=== PATIENT | female | born 1995 | race Caucasian/White ===

== ENCOUNTER 2017-05-25 13:15 | Emergency (ER) | payer MEDICAID, OTHER ==
[2016-04-01 16:58] VITALS: BMI 26.9
[2017-05-25 18:56] VITALS: BP 127/86; PULSE 70; TEMP 98.1
== END 2017-05-25 14:55 | disposition home or self-care (01) ==
LOC: C.EROB 13:15
DX: O47.1 False labor at or after 37 completed weeks of gestation (principal); Z3A.38 38 weeks gestation of pregnancy

== ENCOUNTER 2017-05-28 18:36 | Inpatient (IN) | payer OTHER ==
[2016-04-01 16:58] VITALS: BMI 26.9
[2017-05-28] MEDS ORDERED: Lactated Ringer's 1,000 ML IV SCH (19:00)
[2017-05-28] MEDS ORDERED: Penicillin G Potassium 5 MU in Dextrose 5% In Water 50 ML IV ONE (19:01)
[2017-05-28] MEDS ORDERED: Penicillin G 5 Million Unit Vial IVPB ONE (19:15)
[2017-05-28 19:58] LABS: BASO % 0.2 % (0.0-2.0); EOS % 0.1 % (0.0-4.0); HEMATOCRIT 38.5 % (34.0-47.0); LYMPH # 0.9 K/uL (1.0-4.3); LYMPH % 5.3 % (20.0-40.0); MEAN CORPUSCULAR HEMOGLOBIN 25.7 pg (27.0-31.0); MEAN CORPUSCULAR HGB CONC 32.9 g/dL (33.0-37.0); MEAN PLATELET VOLUME 10.2 fL (7.2-11.7); MONO # 0.9 K/uL (0.0-0.8); MONO % 5.2 % (0.0-10.0); NRBC % 0.4 % (0.0-2.0); PLATELET COUNT 86 K/uL (130-400); RED CELL DISTRIBUTION WIDTH 14.4 % (11.5-14.5); WHITE BLOOD COUNT 17.7 K/uL (4.8-10.8)
[2017-05-28 20:07] LABS: INR 0.9
[2017-05-28 20:12] LABS: RBC URINE 1 /hpf (0-3); TRANSITIONAL EPITHIAL < 1 /hpf (0-3); URINE BACTERIA RARE (<OCC); URINE BILIRUBIN NEGATIVE (NEGATIVE); URINE BLOOD NEGATIVE (NEGATIVE); URINE COLOR Amber (YELLOW); URINE GLUCOSE (UA) NORMAL (Normal); URINE KETONE NEGATIVE (NEGATIVE); URINE LEUKOCYTE ESTERASE NEG Leu/uL (Negative); URINE PROTEIN 2+ mg/dL (NEGATIVE); URINE UROBILINOGEN NORMAL mg/dL (0.2-1.0); WBC URINE 1 /hpf (0-5)
[2017-05-28 20:21] LABS: ALB/GLOB RATIO 0.9 (1.0-2.1); ALKALINE PHOSPHATASE 357 U/L (38-126); ALT/SGPT 401 U/L (9-52); AST/SGOT 461 U/L (14-36); BILIRUBIN,TOTAL 1.7 mg/dL (0.2-1.3); BLOOD UREA NITROGEN 8 mg/dL (7-17); CALCIUM 8.5 mg/dl (8.6-10.4); CARBON DIOXIDE 19 mmol/L (22-30); CHLORIDE 101 mmol/L (98-107); GFR AFRICAN-AMERICAN > 60; GLUCOSE,RANDOM 72 mg/dL (65-105); POTASSIUM 3.8 mmol/L (3.6-5.2); SODIUM 132 mmol/L (132-148); TOTAL PROTEIN 7.9 g/dL (6.3-8.3); URIC ACID 5.1 mg/dL (2.2-7.5)
[2017-05-28] MEDS ORDERED: Nalbuphine 20 mg/ml Inj (1 ml) IVP ONE (20:28)
[2017-05-28 20:40] LABS: BASO % 0.1 % (0.0-2.0); EOS % 0.1 % (0.0-4.0); HEMATOCRIT 37.6 % (34.0-47.0); LYMPH # 1.2 K/uL (1.0-4.3); LYMPH % 6.9 % (20.0-40.0); MEAN CELL VOLUME 77.9 fL (81.0-99.0); MEAN CORPUSCULAR HEMOGLOBIN 25.6 pg (27.0-31.0); MEAN CORPUSCULAR HGB CONC 32.9 g/dL (33.0-37.0); MEAN PLATELET VOLUME 10.7 fL (7.2-11.7); MONO # 0.9 K/uL (0.0-0.8); MONO % 5.1 % (0.0-10.0); NRBC % 0.1 % (0.0-2.0); RED CELL DISTRIBUTION WIDTH 14.2 % (11.5-14.5); WHITE BLOOD COUNT 17.5 K/uL (4.8-10.8)
--- NOTE | 2017-05-28 20:55 | OBHP ---
Datetime: 05/28/2017 19:05 IP Adm Impression: Term, intrauterine IP Admit Plan: Admit to unit; Initiate labor protocol Admit Comment, IP Provider: Patient is a 22 year old at 39w0d KEISHA 06/04/17 by LMP presents to L+D for contractions that started at 8:30am today, states that pain is located in the right side of the abdomen and is constant in nature. Also states having one episode of nausea and vomiting this mor taiwo. Endorses +FM, denies VB, LOF. Issues: Hx of Chlamydia - treated on 05/21/17 GBS positive OB Hx: 1. 2013 at term, no complications [employer] Hx: LMP: 08/28/16 [place]: 13 x regular x 4-5 days Denies fibroids, ovarian cysts Denies hx of abnormal pap smears Hx of chlamydia with this - treated on 05/21/17 Allergies: NKDA Medications: PNV Medical Hx: Denies Surgical Hx: Laparoscopic cholecystectomy in 2013 Social Hx: Denies alcohol, tobacco, drug use; lives with mother and daughter Family Hx: Mother - healthy; Father - DM PE: See above A/P: 22 year old at 39w0d presents with uterine contractions 1. Admit to unit 2. Stable, afebrile 3. CEFM and TOCO 4. Admission labs - CBC, CMP, T+S, UA 5. LR @ 125 cc/hr 6. GBS positive - Penicillin G 5mu x 1, Penicillin G 2.5mu q4H until delivery 7. Elevated BP - PIH labs ordered 8. Anesthesia consulted for epidural 9. Anticipate vaginal delivery 10. Plan d/w attending Verónica Kendrick DO PGY-1 Patient examiend.agree with resident exam, assessment and plan Pelvic Type - PN: Adequate Extremities - PN: Normal Abdomen - PN: Normal Lungs - PN: Normal Heart - PN: Normal General - PN: Normal Weight - Estimated: 3200 Presentation-Admit: Vertex FHR - Baseline A Provider: 140 Contraction Comments Provider: q2-3 min Comments, ACOG Physical Exam: VS: BP 138/95 HR 75 Gen: AAOx3 CV: RRR Lungs: CTA B/L Abd: Soft, gravid Ext: No clubbing, cyanosis, edema; no calf tenderness SVE: 3-4/50/-2 Gestation - Est Wks by US: 39.0 IP Hx Assessment: The History has been Reviewed and is Current EGA AdmitDate IP: 39.0 Vital Signs Provider: Reviewed IP Chief Complaint: Uterine contractions; Maternal discomfort NICHD Variability Prov Fetus A: Moderate 6-25bpm NICHD Accel Fetus A IP Provider: 15X15 FHR Category Provider Fetus A: Category I NICHD Decel Fetus A IP Provider: None Dilatation, Provider: 3-4 Effacement, Provider: 50 Station, Provider: -2 Genitourinary Exam: Normal DTRs - PN: Normal
[2017-05-28] MEDS ORDERED: Magnesium Sulfate 4 gm/100 ml 4 GM/100 ML BAG IVPB ONE ×2 (21:00→21:09)
[2017-05-28] MEDS ORDERED: Magnesium Sulfate 20 gm 20 MG/0.5 ML BAG IV SCH (21:15)
--- NOTE | 2017-05-28 21:35 | OBPN ---
Datetime: 05/28/2017 21:31 IP Progress Impression: Normal progression of labor; Reassuring heart rate IP Procedures: Artificial ROM FHR - Baseline A Provider: 150 IP Progress Note Comment: S-patient states that ctx are less painful after nubain and phenergan O-VS BP WNL FHT 150s, mod arin, occ variable Iselin ctx q 2min sve 4-5/80/-2 A/P Patient amditte din labor.One elevated bp on admission.PIH labs suggestive of hellp syndrome -discusse dlabs resulst with patient.arom doen to augment labor -start magnesium for seizure prophyalxis -labs q4hr -monitor closely Vital Signs Provider: Reviewed NICHD Variability Prov Fetus A: Moderate 6-25bpm Dilatation, Provider: 4-5 Effacement, Provider: 80 Station, Provider: -2 NICHD Decel Fetus A IP Provider: Variable Datetime: 05/28/2017 19:05 Contraction Comments Provider: q2-3 min Gestation - Est Wks by US: 39.0 Weight - Estimated: 3200 Presentation-Admit: Vertex NICHD Accel Fetus A IP Provider: 15X15 FHR Category Provider Fetus A: Category I
[2017-05-28] MEDS ORDERED: Magnesium Sulfate 20 gm 20,000 MG/500 ML BAG IV ONE (21:38)
[2017-05-28 22:48] LABS: NEUTROPHIL 89 % (50-75); TOTAL CELLS COUNTED 100
[2017-05-28] MEDS ORDERED: Penicillin G Potassium 2.5 MU in Dextrose 5% In Water 50 ML IV SCH (23:30)
[2017-05-29 00:09] LABS: BASO % 0.2 % (0.0-2.0); HEMATOCRIT 36.6 % (34.0-47.0); LYMPH # 0.9 K/uL (1.0-4.3); LYMPH % 6.5 % (20.0-40.0); MEAN CELL VOLUME 77.6 fL (81.0-99.0); MEAN CORPUSCULAR HEMOGLOBIN 25.4 pg (27.0-31.0); MEAN CORPUSCULAR HGB CONC 32.7 g/dL (33.0-37.0); MEAN PLATELET VOLUME 10.1 fL (7.2-11.7); MONO # 0.6 K/uL (0.0-0.8); MONO % 4.5 % (0.0-10.0); NRBC % 0.1 % (0.0-2.0); PLATELET COUNT 65 K/uL (130-400); RED CELL DISTRIBUTION WIDTH 14.1 % (11.5-14.5); WHITE BLOOD COUNT 13.3 K/uL (4.8-10.8)
[2017-05-29] MEDS ORDERED: Benzocaine/Menthol 20%-0.5% Topical Spray (60 ml) TOP PRN (00:59)
[2017-05-29] MEDS ORDERED: oxyCODONE 5 mg Immediate Release Tab PO PRN (01:03)
[2017-05-29] MEDS ORDERED: oxyCODONE 10 mg Immediate Release Tab PO PRN (01:03)
--- NOTE | 2017-05-29 01:06 | OBDS ---
DELIVERY PERSONNEL Delivery Doctor: Ana Maria Beavers MD Resident: Verónica Kendrick PGY1 MATERNAL INFORMATION Delivery Anesthesia: None Estimated Blood Loss (ml): 250 Placenta Cultured: No Maternal Complications: Other Provider Comments: patient pushing. of a male infant from [place].Body and shoulders delivered without difficulty.cord clamped and cut .cord segment taken for cord blood ph cord blood collected.Placenta spontaneously delivered.Oxytocin mixed in crystalloids started.1 dos e of hemabate given. first degree right labial and right periurethral repaired with 2-0 chromic Fundus firm apgars 9/9 at 1 and 5 min of life patient stable LABOR SUMMARY EDC: 06/04/2017 00:00 No. Babies in Womb: 1 LABOR INFORMATION Onset of Labor: 05/28/2017 15:00 Group B Beta Strep: Positive MEMBRANES Membranes Rupture Method: Artificial Rupture of Membranes: 05/28/2017 21:30 Length of Rupture (hrs): 3.23 Amniotic Fluid Color: Bloody Amniotic Fluid Amount: Moderate Amniotic Fluid Odor: Normal VAGINAL DELIVERY Episiotomy: None Laceration Extension: First Degree Laceration Type: Periurethral Laceration Repair Note: first degree right labial and right periurethral repaired with 2-0 chromic Sponge Count Correct: Yes; Vaginal Sweep Performed Sharps Count Correct: Yes BABY A INFORMATION Delivery Date/Time: 05/29/2017 00:44 Method of Delivery: Vaginal SHOULDER DYSTOCIA BABY A Delivery Date/Time: 05/29/2017 00:44 WEIGHT/LENGTH BABY A Infant Birthweight (gms): 3260 Weight (lb): 7 Weight (oz): 3 Infant Length Inches: 19.00 Length cms: 48.3
[2017-05-29 01:53] LABS: NEUTROPHIL 85 % (50-75); TOTAL CELLS COUNTED 100
[2017-05-29 05:41] LABS: BASO % 0.1 % (0.0-2.0); HEMATOCRIT 36.7 % (34.0-47.0); LYMPH # 1.2 K/uL (1.0-4.3); LYMPH % 7.9 % (20.0-40.0); MEAN CELL VOLUME 78.5 fL (81.0-99.0); MEAN CORPUSCULAR HEMOGLOBIN 25.6 pg (27.0-31.0); MEAN CORPUSCULAR HGB CONC 32.6 g/dL (33.0-37.0); MEAN PLATELET VOLUME 9.8 fL (7.2-11.7); MONO # 0.9 K/uL (0.0-0.8); MONO % 5.8 % (0.0-10.0); NRBC % 0.2 % (0.0-2.0); PLATELET COUNT 65 K/uL (130-400); RED CELL DISTRIBUTION WIDTH 14.2 % (11.5-14.5)
[2017-05-29 06:14] LABS: NEUTROPHIL 84 % (50-75); TOTAL CELLS COUNTED 100
[2017-05-29 06:15] LABS: ALB/GLOB RATIO 0.8 (1.0-2.1); ALKALINE PHOSPHATASE 317 U/L (38-126); ALT/SGPT 366 U/L (9-52); AST/SGOT 435 U/L (14-36); BILIRUBIN,TOTAL 1.4 mg/dL (0.2-1.3); BLOOD UREA NITROGEN 8 mg/dL (7-17); CALCIUM 7.7 mg/dl (8.6-10.4); CARBON DIOXIDE 21 mmol/L (22-30); CHLORIDE 102 mmol/L (98-107); GFR AFRICAN-AMERICAN > 60; GLUCOSE,RANDOM 85 mg/dL (65-105); MAGNESIUM 5.2 mg/dL (1.6-2.3); SODIUM 130 mmol/L (132-148); TOTAL PROTEIN 6.9 g/dL (6.3-8.3)
[2017-05-29] MEDS ORDERED: Calcium Gluconate 4.65 mEq/10 ml Inj IVP ONE (08:56)
[2017-05-29] MEDS ORDERED: Calcium Gluconate 4.65 mEq/10 ml Inj IVP PRN ×2 (09:00→09:21)
[2017-05-29] MEDS ORDERED: MAGNESIUM SULFATE IVPB ONE (11:03)
--- NOTE | 2017-05-29 11:04 | OBPN ---
Datetime: 05/29/2017 09:28 IP Progress Note Comment: Patient was seen today resting comfortably in bed. She is status post norm al vaginal delivery at 00:44. Her only complaint was feeling hungry. She has not ambulated yet. She i s passing flatus but has not had a bowel movement yet. She is as normal. She denied vis ion changes, shortness of breath, abdominal pain, right upper quadrant pain, pelvic pain, leg pain. General: alert, oriented, well-appearing, not in acute distress Eyes: no scleral icterus, EOMI Mouth: mucous membranes moist Cardio: normal heart sounds, S1 and S2 present, normal rate, NO murmurs appreciated Respiratory: normal lung sounds bilaterally, good inspiratory effort, NO wheezes, rales or rhonchi appreciated GI: Normoactive bowel sounds, NO tenderness to palpation, No tenderness in right upper quadrant Reproductive: Fundus palpated at level of umbilicus, minimal lochia rubra noted Extremities: Patellar reflex mildly decreased, NO tenderness to palpation of lower extremities. Ve nodynes in place Assessment: female status post normal vaginal delivery as above. Elevated BP on admission. Elevated LDH, WBC, LFTs all trending down; and low platelet - stable; on magnesium sulphate for HELLP syndrome . Plan: repeat LDH, Mag level, Uric Acid, CMP, CBC, PT, PTT - every 6 hours continue magnesium sulfate drip - follow titration protocol (keep calcium gluconate 1 amp at bedsi de) continue lactated ringers at 125 cc/hr pain control start clear liquid diet docusate 100mg po BID Sennosides 17.2mg PO QD Ehsan Clayton DO, PGY-1 Attending Note: patient seen and evaluated with Resident. I agree with the above as domumented. Di stefani process discussed with patient. Patient expressed an understanding; no questions offered. Patie nt is clinicallystable. Plan: 1) As above. Vital Signs Provider: Within Normal Limits
[2017-05-29] MEDS ORDERED: Magnesium Sulfate 20 gm 20,000 MG/500 ML BAG IV ONE (11:05)
[2017-05-29 11:43] LABS: BASO % 0.1 % (0.0-2.0); EOS % 0.1 % (0.0-4.0); LYMPH # 1.5 K/uL (1.0-4.3); LYMPH % 9.3 % (20.0-40.0); MEAN CELL VOLUME 77.5 fL (81.0-99.0); MEAN CORPUSCULAR HEMOGLOBIN 25.5 pg (27.0-31.0); MEAN CORPUSCULAR HGB CONC 32.9 g/dL (33.0-37.0); MEAN PLATELET VOLUME 9.9 fL (7.2-11.7); MONO # 0.9 K/uL (0.0-0.8); MONO % 5.6 % (0.0-10.0); PLATELET COUNT 69 K/uL (130-400); RED CELL DISTRIBUTION WIDTH 14.5 % (11.5-14.5); WHITE BLOOD COUNT 16.1 K/uL (4.8-10.8)
[2017-05-29 11:51] LABS: INR 0.9
[2017-05-29 12:04] LABS: POTASSIUM 3.9 mmol/L (3.6-5.2)
[2017-05-29] MEDS ORDERED: Magnesium Sulfate 20 gm 20 GM/500 ML BAG IV SCH (12:05)
[2017-05-29 12:06] LABS: ALB/GLOB RATIO 1.2 (1.0-2.1); ALKALINE PHOSPHATASE 317 U/L (38-126); ALT/SGPT 321 U/L (9-52); AST/SGOT 304 U/L (14-36); BILIRUBIN,TOTAL 1.5 mg/dL (0.2-1.3); BLOOD UREA NITROGEN 6 mg/dL (7-17); CALCIUM 6.9 mg/dl (8.6-10.4); CARBON DIOXIDE 23 mmol/L (22-30); CHLORIDE 99 mmol/L (98-107); GFR AFRICAN-AMERICAN > 60; GLUCOSE,RANDOM 77 mg/dL (65-105); SODIUM 129 mmol/L (132-148); URIC ACID 5.6 mg/dL (2.2-7.5)
[2017-05-29 12:09] LABS: MAGNESIUM 6.5 mg/dL (1.6-2.3)
[2017-05-29 12:15] LABS: NEUTROPHIL 79 % (50-75); TOTAL CELLS COUNTED 100
[2017-05-29 12:19] LABS: LARGE PLATELETS PRESENT
[2017-05-29] MEDS ORDERED: Sodium Chloride 0.9% 1,000 ML IV SCH (13:45)
[2017-05-29 18:08] LABS: BASO # 0.1 K/uL (0.0-0.2); BASO % 0.5 % (0.0-2.0); EOS % 0.2 % (0.0-4.0); HEMATOCRIT 33.8 % (34.0-47.0); LYMPH # 1.5 K/uL (1.0-4.3); MEAN CELL VOLUME 77.9 fL (81.0-99.0); MEAN CORPUSCULAR HEMOGLOBIN 25.8 pg (27.0-31.0); MEAN CORPUSCULAR HGB CONC 33.1 g/dL (33.0-37.0); MEAN PLATELET VOLUME 9.6 fL (7.2-11.7); MONO # 0.6 K/uL (0.0-0.8); MONO % 3.9 % (0.0-10.0); RED CELL DISTRIBUTION WIDTH 14.4 % (11.5-14.5); WHITE BLOOD COUNT 14.8 K/uL (4.8-10.8)
[2017-05-29 18:17] LABS: INR 0.9
[2017-05-29 18:27] LABS: ALB/GLOB RATIO 0.8 (1.0-2.1); ALKALINE PHOSPHATASE 272 U/L (38-126); ALT/SGPT 346 U/L (9-52); AST/SGOT 313 U/L (14-36); BILIRUBIN,TOTAL 0.8 mg/dL (0.2-1.3); BLOOD UREA NITROGEN 4 mg/dL (7-17); CALCIUM 6.7 mg/dl (8.6-10.4); CARBON DIOXIDE 25 mmol/L (22-30); CHLORIDE 100 mmol/L (98-107); GFR AFRICAN-AMERICAN > 60; GLUCOSE,RANDOM 80 mg/dL (65-105); POTASSIUM 3.9 mmol/L (3.6-5.2); SODIUM 127 mmol/L (132-148); TOTAL PROTEIN 6.7 g/dL (6.3-8.3); URIC ACID 5.5 mg/dL (2.2-7.5)
[2017-05-30 05:07] LABS: BASO % 0.2 % (0.0-2.0); EOS # 0.1 K/uL (0.0-0.7); EOS % 0.7 % (0.0-4.0); HEMATOCRIT 34.8 % (34.0-47.0); LYMPH # 2.8 K/uL (1.0-4.3); LYMPH % 17.8 % (20.0-40.0); MEAN CELL VOLUME 76.8 fL (81.0-99.0); MEAN CORPUSCULAR HEMOGLOBIN 25.7 pg (27.0-31.0); MEAN CORPUSCULAR HGB CONC 33.5 g/dL (33.0-37.0); MONO # 0.8 K/uL (0.0-0.8); MONO % 5.2 % (0.0-10.0); RED CELL DISTRIBUTION WIDTH 14.6 % (11.5-14.5); WHITE BLOOD COUNT 15.5 K/uL (4.8-10.8)
[2017-05-30 06:50] LABS: INR 0.9
[2017-05-30 06:55] LABS: ALB/GLOB RATIO 0.8 (1.0-2.1); ALKALINE PHOSPHATASE 232 U/L (38-126); ALT/SGPT 456 U/L (9-52); AST/SGOT 393 U/L (14-36); BILIRUBIN,TOTAL 0.9 mg/dL (0.2-1.3); BLOOD UREA NITROGEN 6 mg/dL (7-17); CALCIUM 7.6 mg/dl (8.6-10.4); CARBON DIOXIDE 28 mmol/L (22-30); CHLORIDE 100 mmol/L (98-107); GFR AFRICAN-AMERICAN > 60; GLUCOSE,RANDOM 65 mg/dL (65-105); POTASSIUM 4.1 mmol/L (3.6-5.2); SODIUM 132 mmol/L (132-148); TOTAL PROTEIN 6.4 g/dL (6.3-8.3); URIC ACID 4.8 mg/dL (2.2-7.5)
--- NOTE | 2017-05-30 10:05 | OBPPN ---
Datetime: 05/30/2017 07:35 PP Pain Prov: Within normal limits PP Nausea Prov: Denies PP Flatus Prov: Yes PP BM Prov: No PP Heart Prov: Normal PP Lungs Prov: Normal PP Abdomen/Uterus Prov: Normal PP Lochia Prov: Normal PP CVA Tenderness Prov: Not Done PP Extremities Prov: Normal PP Progress Prov: Normal PP Impression Prov: Normal progression PP Plan Prov: Continue present management PP Progress Note Prov: Patient seen and examined at bedside. Per nursing no acute events overnight. Patient is doing well, pain is controlled. Lochia is mild. Ambulating minimally and tolerating diet. Hwang removed this morning, has not urinated yet. Passing flatus, no BM. Breast and bottle feeding. D enies headaches, dizziness, visual changes, cp, palpitations, sob, RUQ/epigastric pain, urinary sympt oms, abnormal bleeding. VS: 114/70 76 97.6 Gen: AAOx3 CV: RRR Lungs: CTA B/L Abd: Soft, non-tender, fundus firm at umbilicus Ext: No clubbing, cyanosis, edema; no calf tenderness Labs: 17.7>12.6/38.5<86 15.5>11.6/34.8<39 O positive Rubella immune A/P: 22 year old at 39w1d s/p who presented with atypical HELLP syndrome PPD#1 -Stable, afebrile -Pain control: motrin and oxycodone prn -S/P mag sulfate -Had 1 elevated BP on admission, BPs have been within normal range -Hwang removed this morning, f/u voiding trial -Platelets downtrending, latest manual count was 44, asymptomatic -Heme/onc consulted, f/u recommendations -Elevated LDH, LFTs appear to have stabilized -Encourage ambulation and hydration -Encourage breast feeding -Continue routine care -Plan d/w attending Verónica Kendrick DO PGY-1 Patient examined.agree with resident exam, assessment and plan Vital Signs Provider PP: Reviewed; Within Normal Limits
[2017-05-30 14:46] LABS: BASO % 0.1 % (0.0-2.0); EOS # 0.1 K/uL (0.0-0.7); EOS % 0.9 % (0.0-4.0); HEMATOCRIT 36.1 % (34.0-47.0); MEAN CELL VOLUME 78.3 fL (81.0-99.0); MEAN CORPUSCULAR HEMOGLOBIN 25.6 pg (27.0-31.0); MEAN CORPUSCULAR HGB CONC 32.7 g/dL (33.0-37.0); MEAN PLATELET VOLUME 9.8 fL (7.2-11.7); MONO # 0.7 K/uL (0.0-0.8); RED CELL DISTRIBUTION WIDTH 14.8 % (11.5-14.5); WHITE BLOOD COUNT 13.2 K/uL (4.8-10.8)
[2017-05-30 15:23] LABS: ALB/GLOB RATIO 1.1 (1.0-2.1); ALKALINE PHOSPHATASE 240 U/L (38-126); ALT/SGPT 411 U/L (9-52); AST/SGOT 277 U/L (14-36); BILIRUBIN,TOTAL 0.8 mg/dL (0.2-1.3); BLOOD UREA NITROGEN 6 mg/dL (7-17); CALCIUM 8.1 mg/dl (8.6-10.4); CARBON DIOXIDE 27 mmol/L (22-30); CHLORIDE 101 mmol/L (98-107); GFR AFRICAN-AMERICAN > 60; GLUCOSE,RANDOM 92 mg/dL (65-105); SODIUM 128 mmol/L (132-148); TOTAL PROTEIN 6.4 g/dL (6.3-8.3)
--- NOTE | 2017-05-30 15:38 | CP.PCM.CON ---
<Fabiano ALASMindy Av - Last Filed: 05/30/17 15:43> History of Present Illness - History of Present Illness History of Present Illness: Patient is a 22 year old female with no prior medical history who was admitted at 39 weeks gestation with right upper quadrant pain. Patient states the pain began Saturday night, got slightly better, then worsened Saturday. Patient reports seeing her PMD on 05/21 and was told she had elevated protein in her urine. Patient states she was told to make dietary adjustments at that time and denies having elevated blood pressure during her . Patient was admitted to hospital on 05/28 with elevated blood pressure, platelets of 80,000 , elevated LDH, elevated liver enzymes, and proteinuria. Patient was started on magnesium sulfate for seizure prophylaxis. Patient delivered on 05/29. Hematology service consulted for evaluation of thrombocytopenia with HELLP syndrome. PMHx: denies PSHx: cholecystectomy 4 years ago following last FamHx: denies Allergies: seasonal PMD: [facility] Review of Systems - Constitutional Constitutional: absent: Chills, Fever - EENT Ears: absent: Dizziness Nose/Mouth/Throat: absent: Bleeding Gums - Cardiovascular Cardiovascular: absent: Chest Pain, Dyspnea - Gastrointestinal Gastrointestinal: absent: Abdominal Pain, Nausea, Vomiting - Genitourinary Genitourinary: absent: Dysuria - Musculoskeletal Musculoskeletal: absent: Back Pain - Integumentary Integumentary: absent: Swelling - Neurological Neurological: absent: Dizziness, Weakness - Hematologic/Lymphatic Hematologic: absent: Easy Bleeding, Easy Bruising Past Patient History - Past Social History Smoking Status: Never Smoked - CARDIAC Hx Cardiac Disorders: No - PULMONARY Hx Respiratory Disorders: No - NEUROLOGICAL Hx Neurological Disorder: No - ENDOCRINE/METABOLIC Hx Endocrine Disorders: Yes Other/Comment: dad is diabetic - HEMATOLOGICAL/ONCOLOGICAL Hx Blood Disorders: No - MUSCULOSKELETAL/RHEUMATOLOGICAL Hx Musculoskeletal Disorders: No - GASTROINTESTINAL Hx Gastrointestinal Disorders: No - PSYCHIATRIC Hx Substance Use: No - SURGICAL HISTORY Hx Cholecystectomy: Yes - ANESTHESIA Hx Anesthesia: No Meds Allergies/Adverse Reactions: Allergies Allergy/AdvReac Type Severity Reaction Status Date / Time seasonal Allergy Uncoded 04/01/16 17:05 - Medications Medications: Current Medications Benzocaine/Menthol (Dermoplast 20%-0.5%) 0 ml TOP Q6H PRN PRN Reason: Perineal Discomfort Last Admin: 05/29/17 10:19 Dose: 60 ml Calcium Gluconate (Calcium Gluconate) 4.65 meq IVP DAILY PRN Docusate Sodium (Colace) 100 mg PO BID [facility] Last Admin: 05/30/17 09:25 Dose: 100 mg Ibuprofen (Motrin Tab) 600 mg PO Q6 PRN PRN Reason: Pain, Mild (1-3) Stop: 06/01/17 22:36 Oxycodone HCl (Oxycodone Immediate Release Tab) 5 mg PO Q4 PRN PRN Reason: Pain, moderate (4-7) Last Admin: 05/29/17 17:12 Dose: 5 mg Oxycodone HCl (Oxycodone Immediate Release Tab) 10 mg PO Q4 PRN PRN Reason: Pain, severe (8-10) Sennosides (Senokot Tab) 17.2 mg PO DAILY [facility] Last Admin: 05/30/17 09:25 Dose: 17.2 mg Physical Exam - Constitutional Appears: No Acute Distress - Head Exam Head Exam: ATRAUMATIC, NORMOCEPHALIC - Eye Exam Eye Exam: EOMI - ENT Exam ENT Exam: Mucous Membranes Moist - Respiratory Exam Respiratory Exam: Clear to Auscultation Bilateral - Cardiovascular Exam Cardiovascular Exam: +S1, +S2 - GI/Abdominal Exam GI & Abdominal Exam: Soft. absent: Tenderness - Extremities Exam Extremities exam: Negative for: pedal edema - Neurological Exam Neurological exam: Alert, Oriented x3 - Skin Skin Exam: Dry, Warm Results - Vital Signs Recent Vital Signs: Last Vital Signs Temp 98.6 F 05/30/17 08:02 Pulse 71 05/30/17 08:02 Resp 18 05/30/17 08:02 BP 102/62 05/30/17 08:02 Pulse Ox 96 05/30/17 08:02 - Labs Result Diagrams: 05/30/17 14:43 05/30/17 14:24 Labs: Laboratory Results - last 24 hr 05/29/17 05/29/17 05/29/17 18:02 18:02 18:02 WBC 14.8 H RBC 4.34 Hgb 11.2 Hct 33.8 L MCV 77.9 L MCH 25.8 L MCHC 33.1 RDW 14.4 Plt Count 62 L Manual Plt Count MPV 9.6 Neut % (Auto) 85.4 H Lymph % (Auto) 10.0 L Sanders % (Auto) 3.9 Eos % (Auto) 0.2 Baso % (Auto) 0.5 Neut # 12.6 H Lymph # 1.5 Sanders # 0.6 Eos # 0.0 Baso # 0.1 PT 9.9 INR 0.9 APTT 29 Fibrinogen Sodium 127 L Potassium 3.9 Chloride 100 Carbon Dioxide 25 Anion Gap 6 L BUN 4 L Creatinine 0.6 L Est GFR ( Amer) > 60 Est GFR (Non-Af Amer) > 60 Random Glucose 80 Uric Acid 5.5 Calcium 6.7 L Magnesium Total Bilirubin 0.8 AST 313 H ALT 346 H Alkaline Phosphatase 272 H Lactate Dehydrogenase 1838 H Total Protein 6.7 Albumin 3.0 L Globulin 3.7 Albumin/Globulin Ratio 0.8 L 05/29/17 05/30/17 05/30/17 18:42 05:04 06:13 WBC 15.5 H RBC 4.53 Hgb 11.6 Hct 34.8 MCV 76.8 L MCH 25.7 L MCHC 33.5 RDW 14.6 H Plt Count 39 L D Manual Plt Count 44 L D MPV 9.0 Neut % (Auto) 76.1 H Lymph % (Auto) 17.8 L Sanders % (Auto) 5.2 Eos % (Auto) 0.7 Baso % (Auto) 0.2 Neut # 11.8 H Lymph # 2.8 Sanders # 0.8 Eos # 0.1 Baso # 0.0 PT INR APTT Fibrinogen Sodium Potassium Chloride Carbon Dioxide Anion Gap BUN Creatinine Est GFR ( Amer) Est GFR (Non-Af Amer) Random Glucose Uric Acid Calcium Magnesium 4.8 H Total Bilirubin AST ALT Alkaline Phosphatase Lactate Dehydrogenase Total Protein Albumin Globulin Albumin/Globulin Ratio 05/30/17 05/30/17 05/30/17 06:26 06:26 14:24 WBC RBC Hgb Hct MCV MCH MCHC RDW Plt Count Manual Plt Count MPV Neut % (Auto) Lymph % (Auto) Sanders % (Auto) Eos % (Auto) Baso % (Auto) Neut # Lymph # Sanders # Eos # Baso # PT 9.7 INR 0.9 APTT 29 Fibrinogen 463 H Sodium 132 128 L Potassium 4.1 4.0 Chloride 100 101 Carbon Dioxide 28 27 Anion Gap 9 L 5 L BUN 6 L 6 L Creatinine 0.5 L 0.7 Est GFR ( Amer) > 60 > 60 Est GFR (Non-Af Amer) > 60 > 60 Random Glucose 65 92 Uric Acid 4.8 Calcium 7.6 L 8.1 L Magnesium Total Bilirubin 0.9 0.8 AST 393 H D 277 H D ALT 456 H D 411 H Alkaline Phosphatase 232 H 240 H Lactate Dehydrogenase 1973 H Total Protein 6.4 6.4 Albumin 2.8 L 3.3 L Globulin 3.6 3.1 Albumin/Globulin Ratio 0.8 L 1.1 05/30/17 14:43 WBC 13.2 H RBC 4.61 Hgb 11.8 Hct 36.1 MCV 78.3 L MCH 25.6 L MCHC 32.7 L RDW 14.8 H Plt Count 56 L Manual Plt Count MPV 9.8 Neut % (Auto) 79.0 H Lymph % (Auto) 15.0 L Sanders % (Auto) 5.0 Eos % (Auto) 0.9 Baso % (Auto) 0.1 Neut # 10.4 H Lymph # 2.0 Sanders # 0.7 Eos # 0.1 Baso # 0.0 PT INR APTT Fibrinogen Sodium Potassium Chloride Carbon Dioxide Anion Gap BUN Creatinine Est GFR ( Amer) Est GFR (Non-Af Amer) Random Glucose Uric Acid Calcium Magnesium Total Bilirubin AST ALT Alkaline Phosphatase Lactate Dehydrogenase Total Protein Albumin Globulin Albumin/Globulin Ratio Assessment & Plan - Assessment and Plan (Free Text) Assessment: 22 year old female with HELLP syndrome, PPD #1 HELLP Syndrome patient currently day 1 platelet count initially downtrending, now improving after delivery hemoglobin stable will continue to follow platelet count will order CBC, Liver enzymes, LDH for tomorrow continue to monitor for RUQ pain, would consider ultrasound if pain returns Patient should follow up with her PMD for re-evaluation of blood work in one week If repeat blood work abnormal, patient to follow up with Dr. Santillan as outpatient Plan as per Dr. Santillan <Orlando Santillan - Last Filed: 05/30/17 16:43> Meds - Medications Medications: Current Medications Benzocaine/Menthol (Dermoplast 20%-0.5%) 0 ml TOP Q6H PRN PRN Reason: Perineal Discomfort Last Admin: 05/29/17 10:19 Dose: 60 ml Calcium Gluconate (Calcium Gluconate) 4.65 meq IVP DAILY PRN Docusate Sodium (Colace) 100 mg PO BID [facility] Last Admin: 05/30/17 09:25 Dose: 100 mg Ibuprofen (Motrin Tab) 600 mg PO Q6 PRN PRN Reason: Pain, Mild (1-3) Stop: 06/01/17 22:36 Oxycodone HCl (Oxycodone Immediate Release Tab) 5 mg PO Q4 PRN PRN Reason: Pain, moderate (4-7) Last Admin: 05/29/17 17:12 Dose: 5 mg Oxycodone HCl (Oxycodone Immediate Release Tab) 10 mg PO Q4 PRN PRN Reason: Pain, severe (8-10) Sennosides (Senokot Tab) 17.2 mg PO DAILY [facility] Last Admin: 05/30/17 09:25 Dose: 17.2 mg Results - Vital Signs Recent Vital Signs: Last Vital Signs Temp 98.6 F 05/30/17 08:02 Pulse 71 05/30/17 08:02 Resp 18 05/30/17 08:02 BP 102/62 05/30/17 08:02 Pulse Ox 96 05/30/17 08:02 - Labs Result Diagrams: 05/30/17 14:43 05/30/17 14:24 Labs: Laboratory Results - last 24 hr 05/29/17 05/29/17 05/29/17 18:02 18:02 18:02 WBC 14.8 H RBC 4.34 Hgb 11.2 Hct 33.8 L MCV 77.9 L MCH 25.8 L MCHC 33.1 RDW 14.4 Plt Count 62 L Manual Plt Count MPV 9.6 Neut % (Auto) 85.4 H Lymph % (Auto) 10.0 L Sanders % (Auto) 3.9 Eos % (Auto) 0.2 Baso % (Auto) 0.5 Neut # 12.6 H Lymph # 1.5 Sanders # 0.6 Eos # 0.0 Baso # 0.1 PT 9.9 INR 0.9 APTT 29 Fibrinogen Sodium 127 L Potassium 3.9 Chloride 100 Carbon Dioxide 25 Anion Gap 6 L BUN 4 L Creatinine 0.6 L Est GFR ( Amer) > 60 Est GFR (Non-Af Amer) > 60 Random Glucose 80 Uric Acid 5.5 Calcium 6.7 L Magnesium Total Bilirubin 0.8 AST 313 H ALT 346 H Alkaline Phosphatase 272 H Lactate Dehydrogenase 1838 H Total Protein 6.7 Albumin 3.0 L Globulin 3.7 Albumin/Globulin Ratio 0.8 L 05/29/17 05/30/17 05/30/17 18:42 05:04 06:13 WBC 15.5 H RBC 4.53 Hgb 11.6 Hct 34.8 MCV 76.8 L MCH 25.7 L MCHC 33.5 RDW 14.6 H Plt Count 39 L D Manual Plt Count 44 L D MPV 9.0 Neut % (Auto) 76.1 H Lymph % (Auto) 17.8 L Sanders % (Auto) 5.2 Eos % (Auto) 0.7 Baso % (Auto) 0.2 Neut # 11.8 H Lymph # 2.8 Sanders # 0.8 Eos # 0.1 Baso # 0.0 PT INR APTT Fibrinogen Sodium Potassium Chloride Carbon Dioxide Anion Gap BUN Creatinine Est GFR ( Amer) Est GFR (Non-Af Amer) Random Glucose Uric Acid Calcium Magnesium 4.8 H Total Bilirubin AST ALT Alkaline Phosphatase Lactate Dehydrogenase Total Protein Albumin Globulin Albumin/Globulin Ratio 05/30/17 05/30/17 05/30/17 06:26 06:26 14:24 WBC RBC Hgb Hct MCV MCH MCHC RDW Plt Count Manual Plt Count MPV Neut % (Auto) Lymph % (Auto) Sanders % (Auto) Eos % (Auto) Baso % (Auto) Neut # Lymph # Sanders # Eos # Baso # PT 9.7 INR 0.9 APTT 29 Fibrinogen 463 H Sodium 132 128 L Potassium 4.1 4.0 Chloride 100 101 Carbon Dioxide 28 27 Anion Gap 9 L 5 L BUN 6 L 6 L Creatinine 0.5 L 0.7 Est GFR ( Amer) > 60 > 60 Est GFR (Non-Af Amer) > 60 > 60 Random Glucose 65 92 Uric Acid 4.8 Calcium 7.6 L 8.1 L Magnesium Total Bilirubin 0.9 0.8 AST 393 H D 277 H D ALT 456 H D 411 H Alkaline Phosphatase 232 H 240 H Lactate Dehydrogenase 1973 H Total Protein 6.4 6.4 Albumin 2.8 L 3.3 L Globulin 3.6 3.1 Albumin/Globulin Ratio 0.8 L 1.1 05/30/17 14:43 WBC 13.2 H RBC 4.61 Hgb 11.8 Hct 36.1 MCV 78.3 L MCH 25.6 L MCHC 32.7 L RDW 14.8 H Plt Count 56 L Manual Plt Count MPV 9.8 Neut % (Auto) 79.0 H Lymph % (Auto) 15.0 L Sanders % (Auto) 5.0 Eos % (Auto) 0.9 Baso % (Auto) 0.1 Neut # 10.4 H Lymph # 2.0 Sanders # 0.7 Eos # 0.1 Baso # 0.0 PT INR APTT Fibrinogen Sodium Potassium Chloride Carbon Dioxide Anion Gap BUN Creatinine Est GFR ( Amer) Est GFR (Non-Af Amer) Random Glucose Uric Acid Calcium Magnesium Total Bilirubin AST ALT Alkaline Phosphatase Lactate Dehydrogenase Total Protein Albumin Globulin Albumin/Globulin Ratio Assessment & Plan - Assessment and Plan (Free Text) Assessment: Pt seen and examined, agree with residents consult. 22 year old female 39 weeks , admitted for delivery, found to have elevated BP, thrombocytopenia, anemia, elevated LFT's, concerning for HELLP syndrome s/p delivery of baby and IV magnesium. Agree that this is HELLP syndrome. The patient is s/p delivery of baby and notes to resolution of her symptoms. Plt count noted to dip today but cytopenias, LDH, and LFTs should begin to improve. Will follow with you. Okay to D/C if counts improving and can f/u in 1 week for repeat blood work. Thank you for this interesting consult.
[2017-05-31 07:37] LABS: BASO % 0.2 % (0.0-2.0); EOS # 0.2 K/uL (0.0-0.7); EOS % 1.5 % (0.0-4.0); HEMATOCRIT 34.4 % (34.0-47.0); LYMPH % 18.1 % (20.0-40.0); MEAN CELL VOLUME 79.5 fL (81.0-99.0); MEAN CORPUSCULAR HEMOGLOBIN 26.1 pg (27.0-31.0); MEAN CORPUSCULAR HGB CONC 32.8 g/dL (33.0-37.0); MONO # 0.8 K/uL (0.0-0.8); NRBC % 0.3 % (0.0-2.0); RED CELL DISTRIBUTION WIDTH 15.2 % (11.5-14.5); WHITE BLOOD COUNT 16.4 K/uL (4.8-10.8)
[2017-05-31 07:39] LABS: ALB/GLOB RATIO 1.2 (1.0-2.1); ALKALINE PHOSPHATASE 215 U/L (38-126); ALT/SGPT 281 U/L (9-52); AST/SGOT 119 U/L (14-36); BILIRUBIN,TOTAL 0.6 mg/dL (0.2-1.3); BLOOD UREA NITROGEN 9 mg/dL (7-17); CALCIUM 8.2 mg/dl (8.6-10.4); CARBON DIOXIDE 28 mmol/L (22-30); CHLORIDE 103 mmol/L (98-107); GFR AFRICAN-AMERICAN > 60; GLUCOSE,RANDOM 75 mg/dL (65-105); POTASSIUM 4.3 mmol/L (3.6-5.2); SODIUM 138 mmol/L (132-148); TOTAL PROTEIN 5.9 g/dL (6.3-8.3)
--- NOTE | 2017-05-31 10:08 | OBPPN ---
Datetime: 05/31/2017 07:34 PP Pain Prov: Within normal limits PP Nausea Prov: Denies PP Flatus Prov: Yes PP BM Prov: No PP Heart Prov: Normal PP Lungs Prov: Normal PP Abdomen/Uterus Prov: Normal PP Lochia Prov: Normal PP Extremities Prov: Normal PP Progress Prov: Normal PP Comments Phys Exam Prov: Fundus firm below umbilicus No clubbing, cyanosis, edema; no calf tenderness PP Impression Prov: Normal progression PP Plan Prov: Continue present management PP Progress Note Prov: Patient seen and examined at bedside. Per nursing no acute events overnight. Patient is doing well, pain is controlled. Lochia is mild. Patient is ambulating and tolerating diet. Urinating without difficulty. Passing flatus no BM. Breast and bottle feeding. Denies headaches, vis ual changes, dizziness, cp, palpitations, sob, urinary symptoms. VS: 109/72 89 99.0 Gen: AAOx3 CV: RRR Lungs: CTA B/L Abd: Soft, fundus firm below umbilicus Ext: No clubbing, cyanosis, edema; no calf tenderness Labs: 17.7>12.6/38.5<86 F/U am CBC O positive Rubella immune A/P: 22 year old at 39w1d s/p with HELLP syndrome PPD#2 -Stable, afebrile -Pain control with motrin prn -Encourage ambulation and hydration -Encourage -Low platelets - heme/onc consulted, f/u recommendations -Elevated LFTS and LDH, will continue to trend -Continue routine care -Anticipate D/C home tomorrow -Plan d/w attending Verónica Kendrick DO PGY-1 Dr Gilmore agrees Vital Signs Provider PP: Reviewed; Within Normal Limits
--- NOTE | 2017-05-31 22:18 | CP.PCM.PN ---
Subjective - Date & Time of Evaluation Date of Evaluation: 05/31/17 Time of Evaluation: 19:00 - Subjective Subjective: No complaints. Objective - Vital Signs/Intake and Output Vital Signs (last 24 hours): Temp Pulse Resp BP Pulse Ox 97.6 F 94 H 20 117/84 99 05/31/17 16:00 05/31/17 16:00 05/31/17 16:00 05/31/17 16:00 05/31/17 16:00 - Medications Medications: Current Medications Benzocaine/Menthol (Dermoplast 20%-0.5%) 0 ml TOP Q6H PRN PRN Reason: Perineal Discomfort Last Admin: 05/29/17 10:19 Dose: 60 ml Calcium Gluconate (Calcium Gluconate) 4.65 meq IVP DAILY PRN Docusate Sodium (Colace) 100 mg PO BID [facility] Last Admin: 05/31/17 17:26 Dose: 100 mg Ibuprofen (Motrin Tab) 600 mg PO Q6 PRN PRN Reason: Pain, Mild (1-3) Stop: 06/01/17 22:36 Sennosides (Senokot Tab) 17.2 mg PO DAILY [facility] Last Admin: 05/31/17 09:46 Dose: 17.2 mg - Labs Labs: 05/31/17 06:57 05/31/17 06:57 PT 9.7 SECONDS (9.7-12.2) 05/30/17 06:26 INR 0.9 05/30/17 06:26 APTT 29 SECONDS (21-34) 05/30/17 06:26 - Head Exam Head Exam: ATRAUMATIC - Eye Exam Eye Exam: Normal appearance - ENT Exam ENT Exam: Mucous Membranes Dry - Respiratory Exam Respiratory Exam: NORMAL BREATHING PATTERN - Cardiovascular Exam Cardiovascular Exam: +S1, +S2 - GI/Abdominal Exam GI & Abdominal Exam: Normal Bowel Sounds - Extremities Exam Extremities Exam: Normal Inspection Assessment and Plan (1) HELLP syndrome Assessment & Plan: resolving clearing from hematology standpoint for discharge outpatient f/u for repeat blood work in 1 week Status: Acute
[2017-06-01 08:13] LABS: ALB/GLOB RATIO 0.8 (1.0-2.1); ALKALINE PHOSPHATASE 209 U/L (38-126); ALT/SGPT 208 U/L (9-52); AST/SGOT 66 U/L (14-36); BILIRUBIN,TOTAL 0.4 mg/dL (0.2-1.3); BLOOD UREA NITROGEN 8 mg/dL (7-17); CALCIUM 8.5 mg/dl (8.6-10.4); CARBON DIOXIDE 28 mmol/L (22-30); CHLORIDE 104 mmol/L (98-107); GFR AFRICAN-AMERICAN > 60; GLUCOSE,RANDOM 78 mg/dL (65-105); SODIUM 137 mmol/L (132-148)
--- NOTE | 2017-06-01 09:00 | OBPPN ---
Datetime: 06/01/2017 08:49 PP Pain Prov: Within normal limits PP Nausea Prov: Denies PP Flatus Prov: Yes PP BM Prov: Yes PP Breasts Prov: Normal PP Heart Prov: Normal PP Lungs Prov: Normal PP Abdomen/Uterus Prov: Normal PP Lochia Prov: Normal PP Vulva/Perineum Prov: Not Done PP CVA Tenderness Prov: Normal PP Extremities Prov: Normal PP C/S Incision Prov: Not Applicable PP Progress Prov: Normal PP Comments Phys Exam Prov: Abdomen: soft. non distended. (+) BS. Fundus firm, mobile, non tender, 1 FB below umbilicus. Minimal lochia rubra. All other systerms reviewed - as per HPI PP Plan Prov: Continue present management PP Impression Other Prov: HELLP syndrome PP Progress Note Prov: Patient received in bed, room 451. exclusively. Deines headach es, blurred vision, spots RUQ or epigastric pain. Ambulating and voiding without difficulty. Denies n ausea, vomiting P.E.: as above. WD in NAD. Awake, alert, oriented to time, person and place. Pleasant and coopera tive - LFTs today: AST/SLT 66/208; LDH - pending. Plt 05/31/17 = 83K Assessment: PPD#3, 22 y.o. P2, HELLP syndrome - LFTs are trending down, however still elevated. D/ W patient will continue to monitor. Patient saddened at not going home today, but understands. Afebr ile, vital signs reviewed and are stable. Clinically stable. Plan: 1) Comp panel, CBC in am 2) Continue present management 3) Anticipate vaginal delivery IP PP Procedures: None Vital Signs Provider PP: Reviewed; Within Normal Limits
[2017-06-01] MEDS ORDERED: Influenza Vaccine 60 mcg/0.5 mL SYR (4YR UP) IM ONE (10:00)
--- NOTE | 2017-06-01 17:59 | CP.PCM.PN ---
Subjective - Date & Time of Evaluation Date of Evaluation: 06/01/17 Time of Evaluation: 16:00 - Subjective Subjective: No complaints, family at bedside Objective - Vital Signs/Intake and Output Vital Signs (last 24 hours): Temp Pulse Resp BP Pulse Ox 97.6 F 76 18 106/68 97 06/01/17 08:00 06/01/17 08:00 06/01/17 08:00 06/01/17 08:00 06/01/17 08:00 - Medications Medications: Current Medications Benzocaine/Menthol (Dermoplast 20%-0.5%) 0 ml TOP Q6H PRN PRN Reason: Perineal Discomfort Last Admin: 05/29/17 10:19 Dose: 60 ml Calcium Gluconate (Calcium Gluconate) 4.65 meq IVP DAILY PRN Docusate Sodium (Colace) 100 mg PO BID [facility] Last Admin: 06/01/17 17:03 Dose: 100 mg Ibuprofen (Motrin Tab) 600 mg PO Q6 PRN PRN Reason: Pain, Mild (1-3) Stop: 06/01/17 22:36 Sennosides (Senokot Tab) 17.2 mg PO DAILY [facility] Last Admin: 06/01/17 17:04 Dose: Not Given - Labs Labs: 05/31/17 06:57 06/01/17 07:24 PT 9.7 SECONDS (9.7-12.2) 05/30/17 06:26 INR 0.9 05/30/17 06:26 APTT 29 SECONDS (21-34) 05/30/17 06:26 - Head Exam Head Exam: ATRAUMATIC - Eye Exam Eye Exam: Normal appearance - ENT Exam ENT Exam: Mucous Membranes Dry - Respiratory Exam Respiratory Exam: NORMAL BREATHING PATTERN - Cardiovascular Exam Cardiovascular Exam: +S1, +S2 - GI/Abdominal Exam GI & Abdominal Exam: Normal Bowel Sounds - Extremities Exam Extremities Exam: Normal Inspection Assessment and Plan (1) HELLP syndrome Assessment & Plan: resolved LFTs, cytopenias improving daily cleared from hematology standpoint for D/C Status: Acute
[2017-06-02 08:25] LABS: BASO % 0.1 % (0.0-2.0); EOS # 0.3 K/uL (0.0-0.7); EOS % 2.2 % (0.0-4.0); HEMATOCRIT 34.6 % (34.0-47.0); LYMPH # 2.1 K/uL (1.0-4.3); LYMPH % 18.2 % (20.0-40.0); MEAN CELL VOLUME 78.6 fL (81.0-99.0); MEAN PLATELET VOLUME 9.2 fL (7.2-11.7); MONO # 0.6 K/uL (0.0-0.8); MONO % 5.2 % (0.0-10.0); NRBC % 0.1 % (0.0-2.0); RED CELL DISTRIBUTION WIDTH 15.4 % (11.5-14.5); WHITE BLOOD COUNT 11.4 K/uL (4.8-10.8)
[2017-06-02 08:33] VITALS: BP 109/73; RESP 18; TEMP 97.7
[2017-06-02 09:04] LABS: ALB/GLOB RATIO 0.9 (1.0-2.1); ALKALINE PHOSPHATASE 207 U/L (38-126); ALT/SGPT 155 U/L (9-52); AST/SGOT 42 U/L (14-36); BILIRUBIN,TOTAL 0.4 mg/dL (0.2-1.3); BLOOD UREA NITROGEN 11 mg/dL (7-17); CALCIUM 8.6 mg/dl (8.6-10.4); CARBON DIOXIDE 26 mmol/L (22-30); CHLORIDE 105 mmol/L (98-107); GFR AFRICAN-AMERICAN > 60; GLUCOSE,RANDOM 81 mg/dL (65-105); POTASSIUM 3.9 mmol/L (3.6-5.2); SODIUM 139 mmol/L (132-148); TOTAL PROTEIN 7.1 g/dL (6.3-8.3)
--- NOTE | 2017-06-02 11:14 | OBPPN ---
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
--- NOTE | 2017-06-02 11:14 | OBDCSUM ---
Datetime: 06/02/2017 11:12 Discharged to, Provider: Home Follow up at, Provider: / Discharge Diagnosis, Provider: Term Delivered Follow up in weeks, Provider: clinic Discharge Comment, Provider: [place] home preeclamtic s/s given f/u in clinic on or saturday Discharge Diagnosis Prov Other: help syndrome
[2017-06-02 16:59] VITALS: PULSE 76; O2SAT 98
== END 2017-06-02 12:57 | disposition home or self-care (01) | DRG 372 ==
LOC: C.EROB 18:36 → C.4D 18:59 → C.4M 05-30 05:17
PROVIDERS: ADMIT Student in an Organized Health Care Education/Training Program; ATTEND Student in an Organized Health Care Education/Training Program
PROC: 10907ZC Drainage of Amniotic Fluid, Therapeutic from Products of Conception, Via Natural or Artificial Opening (ICD-10-PCS; 2017-05-28)
PROC: 10E0XZZ Delivery of Products of Conception, External Approach (ICD-10-PCS; principal; 2017-05-29)
PROC: 0HQ9XZZ Repair Perineum Skin, External Approach (ICD-10-PCS; 2017-05-29)
DX: O14.24 HELLP syndrome, complicating childbirth (principal); O99.824 Streptococcus B carrier state complicating childbirth; O99.02 Anemia complicating childbirth; D64.9 Anemia, unspecified; O70.0 First degree perineal laceration during delivery; Z90.49 Acquired absence of other specified parts of digestive tract; Z23 Encounter for immunization; Z3A.39 39 weeks gestation of pregnancy; Z37.0 Single live birth